=== PATIENT | female | born 1940 | race Caucasian/White ===

== ENCOUNTER 2016-12-04 10:27 | Day surgery (SDC) | payer MEDICARE, OTHER ==
[~2016-12-04] VITALS: Ht 162.6 cm; Wt 104.3 kg
[~2016-12-04 10:27] MED LIST: ADLT ASA LOW81 MG PO; ALENDRONATE70 MG PO; ALPRAZOLAM0.25 MG PO; ALPRAZOLAM0.5 MG PO; CALCIUM + D600 MG PO; CALCIUM600 M1 PO; CELEBREX100 M1 OR; CLOBETASOL E0.05 % EX; CLONIDINE0.1 MG PO; CLOTRIM/BETA EX; CLOTRIMAZOLE/BETAME1 EX; COLACE100 MG PO; DIOVAN80 MG PO; ELIQUIS5 MG PO; FLUARIX QUADRIV1 IN2 IM; FLUARIX QUADRIV1 INJ IM; HYDRALAZINE25 MG PO; LIPITOR10 MG PO; LOPRESSOR25 MG PO; LORTAB 10-325 M1 TAB PO; LORTAB 1010 MG PO; LORTAB 7.57.5 MG/TAB OR; LOVAZA1 GM PO; LYRICA75 MG PO; MACROBID100 MG PO; MEDDOSEPAK PO; METAN1 OR; METHOCARBAM750 MG PO; METOPROL TAR50 MG OR; METOPROL TAR50 MG PO; METOPROLOL TART50 MG PO; MULTIVITAMIN PO; NASONEX50 MCG/AC; NASONEX50 MCG/AC NAB; PAROXETINE20 MG PO; PATANOL0.1 % OP; PRAVASTATIN SOD20 MG PO; PREVACID15 M1 OR; PREVACID15 M1 PO; PREVACID15 M3 PO; RESTORIL15 MG PO; ROBAXIN-750750 MG PO; STOOL SOFTEN1 TAB PO; TET/DIP TOX1 ML IM; TYLENOL # 31 TA1 PO; VICODIN ES; VICODIN ES1 TAB PO; VITAMIN B-121000 MCG PO; VITAMIN B-1250 MG PO; VITAMIN B12; XANAX1 MG PO; XARELTO20 MG PO; ZETIA10 MG OR; ZETIA10 MG PO; ZOFRAN4 MG/TAB PO; [UNRECOGNIZED DRUG - CODE] OR
[2016-12-04 15:13] VITALS: BP 155/65
== END 2016-12-04 14:30 | disposition home or self-care (01) ==
LOC: ORM 10:27
PROVIDERS: ATTEND Neurological Surgery
PROC: 0XBG0ZZ Excision of Right Wrist Region, Open Approach (ICD-10-PCS; principal; 2016-12-04)
DX: M67.431 Ganglion, right wrist (principal)

== ENCOUNTER 2017-01-22 10:34 | Day surgery (SDC) | payer MEDICARE, OTHER ==
[~2017-01-22] VITALS: Ht 162.6 cm; Wt 104.3 kg
[2017-01-22 13:06] VITALS: BP 175/79
== END 2017-01-22 13:30 | disposition home or self-care (01) ==
LOC: ORM 10:34
PROVIDERS: ATTEND Neurological Surgery
PROC: 3E0R3BZ Introduction of Anesthetic Agent into Spinal Canal, Percutaneous Approach (ICD-10-PCS; principal; 2017-01-22)
PROC: 3E0R33Z Introduction of Anti-inflammatory into Spinal Canal, Percutaneous Approach (ICD-10-PCS; 2017-01-22)
PROC: 00HU33Z Insertion of Infusion Device into Spinal Canal, Percutaneous Approach (ICD-10-PCS; 2017-01-22)
DX: M25.78 Osteophyte, vertebrae (principal); M48.08 Spinal stenosis, sacral and sacrococcygeal region; M54.5 Low back pain
CPT/HCPCS: Q9967